=== PATIENT | female | born 1985 | race Two or more races ===

== ENCOUNTER 2020-02-25 12:05 | Emergency (ER) | payer SELFPAY ==
[2020-02-25 12:24] VITALS: BP 90/48
--- NOTE | 2020-02-25 12:26 | ER Document Report ---
ED Medical Screen (RME) - General Chief Complaint: Pelvic Pain Stated Complaint: FALL,BACK PAIN Time Seen by Provider: 02/25/20 12:14 Primary Care Provider: MYRNA ROGERS MD [Primary Care Provider] - Follow up as needed Mode of Arrival: Ambulatory Information source: Relative - Notes: 34-year-old female presented to ED for complaint of headache low back pain pelvic pain that radiates down to her feet. She states she thinks her IUD is out of place. insisted that he would translate. He states is his hindu belief that she needs a female provider. Patient is alert oriented respirations regular nonlabored speaking in full sentences. I have greeted and performed a rapid initial assessment of this patient. A comprehensive ED assessment and evaluation of the patient, analysis of test results and completion of medical decision making process will be conducted by an additional ED providers. TRAVEL OUTSIDE OF THE [place] IN LAST 30 DAYS: No - Related Data Allergies/Adverse Reactions: No Known Allergies Allergy (Verified 12/19/15 01:36) Doctor's Discharge - Discharge Referrals: MYRNA ROGERS MD [Primary Care Provider] - Follow up as needed
[2020-02-25 12:57] LABS: ABSOLUTE EOSINOPHILS # (AUTO) 0.2 10^3/uL (0.0-0.6); ABSOLUTE LYMPHOCYTES (AUTO) 2.3 10^3/uL (0.5-4.7); ABSOLUTE MONOCYTES (AUTO) 0.4 10^3/uL (0.1-1.4); ABSOLUTE NEUT (AUTO) 3.2 10^3/uL (1.7-8.2); BASOPHILS % (AUTO) 0.4 % (0-2); EOSINOPHILS % (AUTO) 3.5 % (0-6); HEMATOCRIT 37.7 % (36.0-47.0); HEMOGLOBIN 12.9 g/dL (12.0-15.5); LYMPHOCYTES % (AUTO) 37.3 % (13-45); MEAN CORPUSCULAR HEMOGLOBIN 25.8 pg (27.0-33.4); MEAN CORPUSCULAR HGB CONC 34.1 g/dL (32.0-36.0); MEAN CORPUSCULAR VOLUME 76 fl (80-97); MONOCYTES % (AUTO) 6.4 % (3-13); PLATELET COUNT 236 10^3/uL (150-450); RED BLOOD COUNT 4.99 10^6/uL (3.72-5.28); RED CELL DISTRIBUTION WIDTH 14.9 % (11.5-14.0); TOTAL CELLS COUNTED % (AUTO) 100 %; WHITE BLOOD COUNT 6.1 10^3/uL (4.0-10.5)
[2020-02-25 13:01] LABS: APPEARANCE,URINE SLIGHTLY-CLOUDY; BILIRUBIN,URINE NEGATIVE (NEGATIVE); COLOR,URINE YELLOW; GLUCOSE, URINE NEGATIVE (NEGATIVE); KETONES,URINE NEGATIVE (NEGATIVE); LEUKOCYTE ESTERASE,URINE NEGATIVE (NEGATIVE); NITRITE,URINE NEGATIVE (NEGATIVE); PROTEIN,URINE NEGATIVE (NEGATIVE); URINE SPECIFIC GRAVITY 1.026; UROBILINOGEN,URINE NEGATIVE mg/dL (<2.0)
[2020-02-25 13:02] LABS: SEGMENTED NEUTROPHILS % (AUTO) 52.4 % (42-78)
[2020-02-25 13:07] LABS: ADD MANUAL MICROSCOPIC YES
[2020-02-25 13:08] LABS: BACTERIA,URINE TRACE /HPF; WBC,URINE 0-1 /HPF
[2020-02-25 13:24] LABS: ALBUMIN 3.8 g/dL (3.5-5.0); ALKALINE PHOSPHATASE 75 U/L (38-126); ANION GAP 6 (5-19); ASPARTATE AMINO TRANSFERASE 23 U/L (14-36); BILIRUBIN,DIRECT 0.2 mg/dL (0.0-0.4); BILIRUBIN,TOTAL 0.5 mg/dL (0.2-1.3); BLOOD UREA NITROGEN 12 mg/dL (7-20); CALCIUM 9.2 mg/dL (8.4-10.2); CARBON DIOXIDE 30 mmol/L (22-30); CHLORIDE 104 mmol/L (98-107); GLUCOSE 82 mg/dL (75-110); POTASSIUM 4.2 mmol/L (3.6-5.0); TOTAL PROTEIN 6.6 g/dL (6.3-8.2)
--- NOTE | 2020-02-25 14:05 | ER Document Report ---
ED Fall - General Chief Complaint: Fall Stated Complaint: FALL,BACK PAIN Time Seen by Provider: 02/25/20 12:14 Primary Care Provider: MYRNA ROGERS MD [ACTIVE STAFF] - Follow up as needed Mode of Arrival: Ambulatory Information source: Relative - Notes: 34-year-old female who fell down several steps yesterday. She landed on her buttock. Patient complains of tailbone and lower abdominal pain. is concerned the Mirena IUD is out of place. The patient denies fever chills cough sore throat denies chest pain or shortness of breath denies hitting her head or neck or having any loss of consciousness with the fall. Denies headache or blurred vision denies extremity numbness tingling or weakness. Patient complains of moderate aching pain in her tailbone worse with sitting better with standing. Denies any hematuria or dysuria denies vaginal discharge or bleeding. TRAVEL OUTSIDE OF THE [place] IN LAST 30 DAYS: No - Related data Allergies/Adverse Reactions: No Known Allergies Allergy (Verified 12/19/15 01:36) Past Medical History - General Information source: Relative - - Social History Smoking Status: Unknown if Ever Smoked Family History: None Patient has homicidal ideation: No Review of Systems - Review of Systems Constitutional: denies: Chills, Fever EENT: No symptoms reported Cardiovascular: No symptoms reported Gastrointestinal: No symptoms reported Genitourinary: denies: Dysuria, Hematuria, Urgency Female Genitourinary: denies: Vaginal discharge, Vaginal bleeding Musculoskeletal: Back pain Neurological/Psychological: denies: Seizure, Lost consciousness, Headaches -: Yes All other systems reviewed and negative Physical Exam - Vital signs Vitals: Temp Pulse Resp BP Pulse Ox 97.8 F 83 18 90/48 L 98 02/25/20 12:23 02/25/20 12:23 02/25/20 12:23 02/25/20 12:23 02/25/20 12:23 - Notes Notes: GENERAL_APPEARANCE: well_nourished, alert, cooperative VITALS: reviewed, see vital signs table. HEAD: no_swelling\tenderness on the head. EYES: PERRL, EOMI, conjunctiva_clear. NOSE: no_nasal_discharge. MOUTH: (-)decreased moisture. THROAT: no_tonsilar_inflammation, no_airway_obstruction. no_lymphadenopathy NECK: supple, no_neck_tenderness, (-)thyromegaly. BACK: Midline sacral and coccyx pain CHEST_WALL: no_chest_tenderness. ABDOMEN: soft, no_abd_tenderness, (-)guarding, (-)rebound, no_organomegaly, no_abd_masses. EXTREMITIES: good pulses in all_extremities, no_swelling\tenderness in the extremities, no_edema. SKIN: warm, dry, good_color, no_rash. MENTAL_STATUS: speech_clear, oriented_X_3, normal_affect, responds_appropriately to questions. Course - Re-evaluation Re-evalutation: 02/25/20 14:04 34-year-old male fell down 4 steps and injured her tailbone. There was some concern that the patient's Mirena may be out of place. We will grab an x-ray. Patient complained of some lower abdominal pain and triage ordered a abdominal pain work-up. 02/25/20 15:16 There were no fractures noted on the sacrum likely bruised tailbone. Everything else looked fairly good. The ultrasound mention the IUD may be a little low however it can easily be seen on x-ray to I do not think it is displaced it is still maintaining its T form if it were too low I would expect the wings of the IUD to be deformed. Spoke with the patient and about this I did not want an exam due to jewish reasons. We will send some NSAIDs to the pharmacy for them. Recommended follow-up with her LEGAL RECEPTIONIST. Recommended donut pillow for her tailbone. - Vital Signs Vital signs: Temp Pulse Resp BP Pulse Ox 97.8 F 83 18 90/48 L 98 02/25/20 12:23 02/25/20 12:23 02/25/20 12:23 02/25/20 12:23 02/25/20 12:23 - Laboratory Result Diagrams: 02/25/20 12:30 02/25/20 12:30 Laboratory results interpreted by me: 02/25/20 12:30 MCV 76 L MCH 25.8 L RDW 14.9 H - Diagnostic Test Radiology reviewed: Reports reviewed Radiology results interpreted by me: 02/25/20 15:16 Transvaginal US 02/25/20 12:24 IMPRESSION: IUD appears low in position. This extends from the lower uterine segment into the cervix. Sacrum and Coccyx X-Ray 02/25/20 13:44 IMPRESSION: No bony abnormalities. IUD is in place. Discharge - Discharge Clinical Impression: Tailbone injury Qualifiers: Encounter type: initial encounter Qualified Code(s): S39.92XA - Unspecified injury of lower back, initial encounter Condition: Good Disposition: HOME, SELF-CARE Instructions: Coccyx Injury ([facility]) Prescriptions: Ketorolac Tromethamine [Toradol 10 mg Tablet] 10 mg PO Q6HP PRN #12 tablet PRN Reason: Referrals: MYRNA ROGERS MD [ACTIVE STAFF] - Follow up as needed
--- NOTE | 2020-02-25 14:06 | RADIOLOGY REPORT (SQ) ---
EXAM DESCRIPTION: U/S NON-OB PELVIS TV W/O DOP IMAGES COMPLETED DATE/TIME: 02/25/2020 1:40 pm REASON FOR STUDY: pelvic pain after fall iud COMPARISON: None. TECHNIQUE: Dynamic and static grayscale images acquired of the pelvis via transvaginal approach and recorded on PACS. Additional selected color Doppler and spectral images recorded. LIMITATIONS: None. FINDINGS: UTERUS: Contour normal. No mass. ENDOMETRIAL STRIPE: No focal or generalized thickening. No masses. CERVIX: Linear echogenic structure is noted in the cervix. This most likely represents the IUD. RIGHT OVARY AND DOPPLER: Normal size. No worrisome masses. Normal arterial vascular flow without evid ence for torsion. LEFT OVARY AND DOPPLER: Normal size. No worrisome masses. Normal arterial vascular flow without evide nce for torsion. FREE FLUID: None noted. OTHER: No other significant finding. MEASUREMENTS: UTERUS: 9.6 x 4.7 x 6.7 cm. ENDOMETRIAL STRIPE: 1.19 cm. RIGHT OVARY: 3.2 x 1.9 x 2.7 cm. LEFT OVARY: 3.4 x 2.0 x 3.0 cm. IMPRESSION: IUD appears low in position. This extends from the lower uterine segment into the cervi x. TECHNICAL DOCUMENTATION: JOB ID: [id number] 2010 [employer]- All Rights Reserved Rev Reading location - IP/workstation name: [email or web address]
--- NOTE | 2020-02-25 14:46 | RADIOLOGY REPORT (SQ) ---
EXAM DESCRIPTION: SACRUM AND COCCYX IMAGES COMPLETED DATE/TIME: 02/25/2020 2:35 pm REASON FOR STUDY: Fell on buttock down 4 stairs COMPARISON: None. NUMBER OF VIEWS: Three views. TECHNIQUE: AP, lateral, and tilt views of the sacrum and coccyx. LIMITATIONS: None. FINDINGS: MINERALIZATION: Normal. BONES: No acute fracture or dislocation. No worrisome bone lesions. SOFT TISSUES: IUD is in place. OTHER: No other significant finding. IMPRESSION: No bony abnormalities. IUD is in place. TECHNICAL DOCUMENTATION: JOB ID: [id number] 2010 [employer]- All Rights Reserved Reading location - IP/workstation name: [email or web address]
== END 2020-02-25 15:31 | disposition home or self-care (01) ==
LOC: ER 12:05
DX: S39.92XA Unspecified injury of lower back, initial encounter (principal); R10.2 Pelvic and perineal pain; W10.9XXA Fall (on) (from) unspecified stairs and steps, initial encounter; Z97.5 Presence of (intrauterine) contraceptive device
CPT/HCPCS: 36415; 72220; 76830; 80053; 81001; 81025; 85025; 87086; 99285